=== PATIENT | female | born 1945 | race Hispanic/Latino ===

== ENCOUNTER 2016-12-21 10:01 | Outpatient (CLI) | payer OTHER ==
[~2016-12-21 10:01] MED LIST: ASA LO-DOSE81 MG OR; FURO20TA67 PO; METO25TA4 OR
== END 2016-12-21 19:28 | disposition home or self-care (01) ==
LOC: RAD 10:01
DX: R06.02 Shortness of breath (principal)

== ENCOUNTER 2016-12-25 08:14 | Outpatient (CLI) | payer OTHER ==
[2016-12-25 09:05] LABS: PLATELET COUNT 33 K/uL (152-353)
[2016-12-25 09:29] LABS: POTASSIUM 4.1 mmol/L (3.6-5.2); SODIUM 139 mmol/L (136-145)
== END 2016-12-25 23:37 | disposition home or self-care (01) ==
LOC: LABW 08:14
PROVIDERS: Internal Medicine
DX: R06.02 Shortness of breath (principal); I10 Essential (primary) hypertension; Z79.899 Other long term (current) drug therapy; Z51.81 Encounter for therapeutic drug level monitoring
CPT/HCPCS: 36415; 80053; 80061; 81000; 82550; 83880; 84439; 84443; 85027; 85379

== ENCOUNTER 2017-04-09 15:32 | Outpatient (CLI) | payer OTHER | END 2017-04-09 19:13 | disposition home or self-care (01) | LOC: RAD 15:32 | DX: M54.5 Low back pain (principal) ==

== ENCOUNTER 2017-08-07 11:53 | Day surgery (SDC) | payer OTHER ==
[2017-08-07 12:53] LABS: POTASSIUM 3.8 mmol/L (3.6-5.2)
[2017-08-07 13:31] LABS: PLATELET COUNT 97 K/uL (152-353)
[2017-08-07 16:02] LABS: PARTIAL THROMBOPLASTIN TIME 29.4 SECONDS (24.5-33.6)
== END 2017-08-07 17:17 | disposition home or self-care (01) ==
LOC: OR 11:53
PROVIDERS: Internal Medicine Gastroenterology
PROC: 0DB68ZZ Excision of Stomach, Via Natural or Artificial Opening Endoscopic (ICD-10-PCS; principal; 2017-08-07)
PROC: 0DB88ZZ Excision of Small Intestine, Via Natural or Artificial Opening Endoscopic (ICD-10-PCS; 2017-08-07)
DX: K29.80 Duodenitis without bleeding (principal); K29.50 Unspecified chronic gastritis without bleeding; K44.9 Diaphragmatic hernia without obstruction or gangrene; R11.2 Nausea with vomiting, unspecified; R10.13 Epigastric pain; K21.9 Gastro-esophageal reflux disease without esophagitis
CPT/HCPCS: 80053; 85027; 85610; 85730; J2001; J2250; J2704; J3010

== ENCOUNTER 2017-08-13 16:00 | Outpatient (CLI) | payer OTHER | END 2017-08-13 19:05 | disposition home or self-care (01) | LOC: LAB 16:00 | DX: N39.0 Urinary tract infection, site not specified (principal) | CPT/HCPCS: 87077; 87086; 87088; 87186 ==

== ENCOUNTER 2017-08-16 09:24 | Outpatient (CLI) | payer OTHER ==
[~2017-08-16] VITALS: Ht 152.4 cm; Wt 68.0 kg
== END 2017-08-16 12:00 | disposition home or self-care (01) ==
LOC: INF 09:24
DX: N39.0 Urinary tract infection, site not specified (principal)
CPT/HCPCS: 96365; J0696

== ENCOUNTER 2017-08-17 09:44 | Outpatient (CLI) | payer OTHER | END 2017-08-17 13:00 | disposition home or self-care (01) | LOC: INF 09:44 | DX: N39.0 Urinary tract infection, site not specified (principal) | CPT/HCPCS: 96365; J0696 ==

== ENCOUNTER 2017-08-18 09:47 | Outpatient (CLI) | payer OTHER | END 2017-08-18 13:30 | disposition home or self-care (01) | LOC: INF 09:47 | DX: N39.0 Urinary tract infection, site not specified (principal) | CPT/HCPCS: 96365; J0696 ==

== ENCOUNTER 2017-08-19 09:55 | Outpatient (CLI) | payer OTHER | END 2017-08-19 13:00 | disposition home or self-care (01) | LOC: INF 09:55 | DX: N39.0 Urinary tract infection, site not specified (principal) | CPT/HCPCS: 96365; J0696 ==

== ENCOUNTER 2017-08-20 09:46 | Outpatient (CLI) | payer OTHER ==
[~2017-08-20] VITALS: Ht 152.4 cm; Wt 52.2 kg
[2017-08-20 10:55] VITALS: BP 173/87; TEMP 97.7
[2017-08-20 11:20] VITALS: BP 178/83
== END 2017-08-20 11:20 | disposition home or self-care (01) ==
LOC: INF 09:46
DX: N39.0 Urinary tract infection, site not specified (principal)
CPT/HCPCS: 96365; J0696

== ENCOUNTER 2017-08-21 09:47 | Outpatient (CLI) | payer OTHER ==
[~2017-08-21] VITALS: Ht 152.4 cm; Wt 68.0 kg
[2017-08-21 09:55] VITALS: BP 165/75; TEMP 97.9
[2017-08-21 10:21] VITALS: BP 161/71; TEMP 97.9
== END 2017-08-21 10:50 | disposition home or self-care (01) ==
LOC: INF 09:47
DX: N39.0 Urinary tract infection, site not specified (principal)
CPT/HCPCS: 96365; J0696

== ENCOUNTER 2017-08-22 09:45 | Outpatient (CLI) | payer OTHER ==
[~2017-08-22] VITALS: Ht 152.4 cm; Wt 68.0 kg
[2017-08-22 09:55] VITALS: BP 170/91; TEMP 97.9
[2017-08-22 10:45] VITALS: BP 167/82; TEMP 97.9
== END 2017-08-22 11:25 | disposition home or self-care (01) ==
LOC: INF 09:45
DX: N39.0 Urinary tract infection, site not specified (principal)
CPT/HCPCS: 96365; J0696

== ENCOUNTER 2019-01-01 11:22 | Outpatient (CLI) | payer OTHER | END 2019-01-01 21:51 | disposition home or self-care (01) | LOC: RAD 11:22 | DX: M77.31 Calcaneal spur, right foot (principal) ==

== ENCOUNTER 2019-03-27 11:26 | Emergency (ER) | payer OTHER ==
[~2019-03-27] VITALS: Ht 152.4 cm; Wt 68.0 kg
[2019-03-27 12:09] LABS: POTASSIUM 3.9 mmol/L (3.6-5.2); SODIUM 139 mmol/L (136-145)
[2019-03-27 12:21] LABS: PARTIAL THROMBOPLASTIN TIME 25.7 SECONDS (24.5-33.6); PLATELET COUNT 148 K/uL (152-353)
[2019-03-27 13:35] VITALS: BP 144/81; TEMP 97.6
== END 2019-03-27 13:35 | disposition home or self-care (01) ==
LOC: ED 11:26
PROVIDERS: Student in an Organized Health Care Education/Training Program
DX: R07.89 Other chest pain (principal); I48.91 Unspecified atrial fibrillation; I48.92 Unspecified atrial flutter
CPT/HCPCS: 36415; 80053; 84484; 85027; 85610; 85730; 93005; 96374; 99284; J2270

== ENCOUNTER 2019-05-26 15:09 | Outpatient (CLI) | payer OTHER ==
[2019-05-26 15:46] LABS: PLATELET COUNT 68 K/uL (152-353)
[2019-05-26 16:06] LABS: POTASSIUM 3.7 mmol/L (3.6-5.2)
== END 2019-05-26 22:20 | disposition home or self-care (01) ==
LOC: LABW 15:09
PROVIDERS: Internal Medicine Cardiovascular Disease
DX: I10 Essential (primary) hypertension (principal); I48.91 Unspecified atrial fibrillation
CPT/HCPCS: 36415; 80048; 84436; 84443; 85027

== ENCOUNTER 2019-05-27 08:42 | Outpatient (CLI) | payer OTHER ==
[2019-05-27 09:00] LABS: PLATELET COUNT 130 K/uL (152-353)
[2019-05-27 10:04] LABS: POTASSIUM 3.8 mmol/L (3.6-5.2)
== END 2019-05-27 23:35 | disposition home or self-care (01) ==
LOC: LABW 08:42
PROVIDERS: Internal Medicine Cardiovascular Disease
DX: I10 Essential (primary) hypertension (principal); I50.9 Heart failure, unspecified; R53.81 Other malaise; I47.1 Supraventricular tachycardia
CPT/HCPCS: 36415; 80048; 80061; 80076; 84436; 84443; 85027

== ENCOUNTER 2019-08-07 13:55 | Outpatient (CLI) | payer OTHER | END 2019-08-07 22:17 | disposition home or self-care (01) | LOC: MRI 13:55 | DX: M76.61 Achilles tendinitis, right leg (principal) ==

== ENCOUNTER 2019-08-13 16:17 | Outpatient (CLI) | payer OTHER ==
[2019-08-13 16:52] LABS: PLATELET COUNT 160 K/uL (152-353)
[2019-08-13 17:03] LABS: POTASSIUM 4.5 mmol/L (3.6-5.2)
== END 2019-08-13 20:23 | disposition home or self-care (01) ==
LOC: LABW 16:17
PROVIDERS: Physician Assistant
DX: I10 Essential (primary) hypertension (principal); R53.1 Weakness
CPT/HCPCS: 36415; 80053; 81000; 84443; 85027

== ENCOUNTER → 2020-04-14 | Emergency (ER) | payer OTHER ==
[~2020-04-14] VITALS: Ht 152.4 cm; Wt 68.0 kg
[2020-04-14 10:56] VITALS: TEMP 98.5
[2020-04-14 11:38] LABS: PLATELET COUNT 124 K/uL (152-353)
[2020-04-14 12:51] VITALS: BP 166/64
== END ==
LOC: ED 10:23
DX: I10 Essential (primary) hypertension (principal); D64.89 Other specified anemias; R06.02 Shortness of breath
CPT/HCPCS: 83880; 84484; 85027; 93005; 99283

== ENCOUNTER 2020-04-24 18:00 | Observation (INO) | payer OTHER ==
[~2020-04-24] VITALS: Ht 152.4 cm; Wt 71.4 kg
[2020-04-24 18:09] VITALS: BP 132/50; TEMP 98.9
[2020-04-24] MEDS ORDERED: HYDRALAZINE25 MG PO (18:13)
[2020-04-24] MEDS ORDERED: ELIQUIS5 MG (18:14)
[2020-04-24] MEDS ORDERED: PANTOPRAZOLE 40MG TA PO (18:15)
[2020-04-24] MEDS ORDERED: SOTA80TA2 PO (18:15)
[2020-04-24] MEDS ORDERED: COZAAR100 MG PO (18:16)
[2020-04-24] MEDS ORDERED: SPIRONOLACT25 MG PO (18:17)
[2020-04-24] MEDS ORDERED: EUTHYROX25 MCG PO (18:17)
[2020-04-24 18:38] LABS: PLATELET COUNT 178 K/uL (152-353)
[2020-04-24 18:51] LABS: POTASSIUM 4.1 mmol/L (3.6-5.2); SODIUM 140 mmol/L (136-145)
[2020-04-24 19:00] VITALS: BP 139/58
[2020-04-24 19:10] LABS: PARTIAL THROMBOPLASTIN TIME 29.3 SECONDS (24.5-33.6)
[2020-04-25] VITALS: BP 152/58; TEMP 97.6
[2020-04-25 01:19] VITALS: BP 143/58; TEMP 98.7; Ht 152.4 cm; Wt 71.4 kg
[2020-04-25 04:00] VITALS: BP 176/76; TEMP 97.7
[2020-04-25 08:00] VITALS: BP 200/80; TEMP 97.8
[2020-04-25 12:00] VITALS: BP 140/48; TEMP 97.7
[2020-04-25 16:00] VITALS: BP 163/73; TEMP 97.9
== END 2020-04-25 19:18 | disposition home or self-care (01) ==
LOC: ED 18:00 → MED/SURG 19:16
PROVIDERS: ADMIT Hospitalist
DX: R07.9 Chest pain, unspecified (principal); I95.89 Other hypotension; R42 Dizziness and giddiness; I48.91 Unspecified atrial fibrillation; I25.10 Atherosclerotic heart disease of native coronary artery without angina pectoris; K21.9 Gastro-esophageal reflux disease without esophagitis; E03.8 Other specified hypothyroidism; I50.9 Heart failure, unspecified; I11.0 Hypertensive heart disease with heart failure
CPT/HCPCS: 36415; 80053; 81000; 82550; 83880; 84484; 85027; 85610; 85730; 93005; 96360; 96366; 96372; 96374; 96375; 99220; 99284; G0378; J0360; J1650; J1940

== ENCOUNTER 2020-12-25 12:43 | Emergency (ER) | payer OTHER ==
[~2020-12-25] VITALS: Ht 152.4 cm; Wt 71.2 kg
[~2020-12-25 12:43] MED LIST changes: +COZAAR100 MG PO; +ELIQUIS5 MG; +EUTHYROX25 MCG PO; +HYDRALAZINE25 MG PO; +PANTOPRAZOLE 40MG TA PO; +SOTA80TA2 PO; +SPIRONOLACT25 MG PO
[2020-12-25 12:53] VITALS: TEMP 98.1
[2020-12-25 13:47] LABS: PLATELET COUNT 109 K/uL (152-353)
[2020-12-25 14:04] LABS: POTASSIUM 4.8 mmol/L (3.6-5.2); SODIUM 138 mmol/L (136-145)
[2020-12-25 14:07] LABS: PARTIAL THROMBOPLASTIN TIME 31.9 SECONDS (24.5-33.6)
[2020-12-25 16:30] VITALS: BP 167/66
== END 2020-12-25 17:00 | disposition short-term general hospital (02) ==
LOC: ED 12:43
PROVIDERS: Family Medicine
DX: I49.5 Sick sinus syndrome (principal); R00.1 Bradycardia, unspecified; R42 Dizziness and giddiness; I48.91 Unspecified atrial fibrillation
CPT/HCPCS: 36415; 80053; 81000; 82550; 84484; 85027; 85379; 85610; 85730; 93005; 99285

== ENCOUNTER 2021-01-11 07:59 | Outpatient (CLI) | payer OTHER | END 2021-01-11 19:29 | disposition home or self-care (01) | LOC: US 07:59 | PROVIDERS: ATTEND Internal Medicine | DX: R11.0 Nausea (principal) ==

== ENCOUNTER 2021-02-21 09:08 | Outpatient (CLI) | payer OTHER | END 2021-02-21 21:00 | disposition home or self-care (01) | LOC: MAMMO 09:08 | PROVIDERS: ATTEND Internal Medicine | DX: Z12.31 Encounter for screening mammogram for malignant neoplasm of breast (principal) ==

== ENCOUNTER 2021-09-05 09:47 | Outpatient (CLI) | payer OTHER | END 2021-09-05 21:19 | disposition home or self-care (01) | LOC: RAD 09:47 | PROVIDERS: ATTEND Internal Medicine | DX: R05.3 Chronic cough (principal) ==

== ENCOUNTER 2021-09-21 13:34 | Outpatient (CLI) | payer OTHER | END 2021-09-21 19:23 | disposition home or self-care (01) | LOC: CT 13:34 | PROVIDERS: ATTEND Internal Medicine | DX: R05.3 Chronic cough (principal); H66.93 Otitis media, unspecified, bilateral ==